=== PATIENT | male | born 1960 | race Caucasian/White ===

== ENCOUNTER 2018-09-04 03:36 | Inpatient (IN) | payer OTHER ==
[~2018-09-04] VITALS: Ht 177.8 cm; Wt 103.9 kg
--- NOTE | 2018-09-04 03:55 | ER Report ---
History and Physical Time Seen By MD: 03:33 Hx. of Stated Complaint: PATIENT IS FROM [facility]. TRAVELING THROUGH, WAS AT A HOTEL AND FELL OUT OF BED AROUND 0300; PATIENTS THOUGHT HE WAS DISORIENTED AND HAD LEFT SIDED WEEKNESS; PATIENT STATES THAT HE "FEELS FINE" EMS NOTICED THAT THE PATIENT DID HAVE LEFT SIDED WEEKNESS WELL AND LEFT ARM DRIFT WITH STROKE SCALE; NEG. TO FACIAL DROOP AND OR SLURRED SPEACH HPI/ROS CHIEF COMPLAINT: left sided weakness, confusion with fall out of bed HISTORY OF PRESENT ILLNESS: This is a 58 year old male. He is traveling through, moving from [place] to [place]. He fell out of bed and his noted confusion and left sided weakness and slurred speech. Called EMS who arrived. On EMS evaluation, they noted drift of the left arm, but did not appreciate any confusion or slurred speech. Otherwise negative. On arrival, the patient seems better, without deficits. The patient was able to tell me what happened this morning and he was feeling fine. He denies any headache, chest pain, shortness of breath. No weakness at this time and no dizziness. He has normal vision. No r ecent illnesses, and no fevers or chills. He takes a cholesterol and blood pressure medicine, but denies any heart problems otherwise. Family history of heart disease and stroke in father and brother. He is allergic to aspirin, anaphylaxis/hives. REVIEW OF SYSTEMS: Otherwise negative. No trouble with bowel or bladder. No musculoskeletal pain. Allergies: Coded Allergies: aspirin (Verified Allergy, Unknown, 09/04/18) Home Meds Reported Medications Simvastatin (SIMVASTATIN) 20 Mg Tablet, 20 MG PO HS, TAB 09/04/18 Losartan Potassium (LOSARTAN POTASSIUM) 25 Mg Tablet, 25 MG PO QDAY 09/04/18 Reviewed Nurses Notes: Yes Constitutional Vital Sign - Last 24 Hours 09/04/18 09/04/18 09/04/18 09/04/18 03:36 03:37 03:38 03:41 Temp 99.1 Pulse 62 59 62 Resp 44 18 11 B/P (MAP) 122/80 123/77 (92) Pulse Ox 93 96 90 O2 Delivery Room Air 09/04/18 09/04/18 09/04/18 09/04/18 03:46 03:51 03:56 04:00 Pulse ? 62 Resp 12 B/P (MAP) 133/80 (97) Pulse Ox 100 09/04/18 09/04/18 09/04/18 09/04/18 04:01 04:06 04:11 04:16 Pulse 66 62 63 71 Resp 19 37 29 Pulse Ox 93 96 09/04/18 09/04/18 09/04/18 09/04/18 04:21 04:26 04:30 04:31 Pulse 68 66 63 Resp 17 28 B/P (MAP) 140/86 (104) Pulse Ox 89 91 09/04/18 09/04/18 09/04/18 09/04/18 04:36 04:41 04:44 04:46 Pulse ? Resp 16 B/P (MAP) 134/76 (95) Pulse Ox 82 09/04/18 09/04/18 09/04/18 09/04/18 04:51 04:56 05:00 05:01 Pulse 72 65 65 Resp 22 B/P (MAP) 146/85 (105) Pulse Ox 89 99 09/04/18 09/04/18 05:06 05:11 Pulse 65 62 Resp 15 15 Pulse Ox 87 97 Physical Exam General Appearance: The patient is alert. No immediate need for airway protection. No acute distress. Non-toxic in appearance. Eyes: Pupils are equal, round. Reactive to light. No pallor, injection or icter us. Extraocular movements are intact. Normal visual brown by direct confrontation. No nystagmus. ENT: Mucous membranes are moist. Normal oral mucosa. Posterior oropharynx is normal. Normal tympanic membranes and canals. Neck: Supple and non tender. No lymphadenopathy. Respiratory: Lungs are clear to auscultation. There are no retractions or accessory muscle use. Cardiovascular: Regular rate and rhythm. No murmurs, gallops or rubs. Normal capillary refill. No edema. No carotid bruits. Gastrointestinal: Abdomen is soft and non tender. Nondistended. Normal active bowel sounds. Neurological: Alert and oriented x3. Cranial nerved exam with eye exam as noted above. Midline tongue, symmetric palate elevation, no facial weakness noted, no facial numbness to touch. Extremity exam shows equal strength in upper extremities, left leg seems a slight bit weaker. No ataxia on finger to nose or heel to fonseca. No dysphagia or aphasia noted. Skin: Warm and dry. No rashes. Musculoskeletal: Extremities are nontender. Full range of motion. No tenderness in palpation of the cervical, thoracic and lumbar spine. DIFFERENTIAL DIAGNOSIS: After history and physical exam, differential diagnosis was considered for patient with fall and deficits concerning for stroke. NIH stroke scale performed. The patient scored a 3. 2 points for loss of sharp sensation to pin-prick on the entire left side and 1 point for slight drift of the left foot. Telestroke was done with Dr. Day, neurology from the [facility] also evaluated. On her assessment, the left sided weakness was returning again as well as left facial droop. She scored a 5 on NIH stroke scale. Time of Last Known Normal would have been 2200 hours last night, 6+ hours. Medical Decision Making Data Points Result Diagram: 09/04/1832809/04/18328 Laboratory Hematology Test 09/04/18 03:29 White Blood Count 7.0 k/uL (4.5-11.0) Red Blood Count 5.22 M/uL (4.00-5.60) Hemoglobin 14.2 g/dL (14.0-18.0) Hematocrit 41.5 % (42.0-52.0) L Mean Corpuscular Volume 79.6 fL (80.0-96.0) L Mean Corpuscular Hemoglobin 27.2 pg (26.0-33.0) Mean Corpuscular Hemoglobin Concent 34.2 g/dL (32.0-36.0) Red Cell Distribution Width 13.9 % (11.5-14.5) Platelet Count 279 K/uL (150-450) Mean Platelet Volume 7.8 fL (7.2-11.1) Neutrophils (%) (Auto) 50.7 % (39.4-72.5) Lymphocytes (%) (Auto) 34.3 % (17.6-49.6) Monocytes (%) (Auto) 12.0 % (4.1-12.4) Eosinophils (%) (Auto) 2.2 % (0.4-6.7) Basophils (%) (Auto) 0.8 % (0.3-1.4) Nucleated RBC Relative Count (auto) 0.1 /100WBC Neutrophils # (Auto) 3.5 K/uL (2.0-7.4) Lymphocytes # (Auto) 2.4 K/uL (1.3-3.6) Monocytes # (Auto) 0.8 K/uL (0.3-1.0) Eosinophils # (Auto) 0.2 K/uL (0.0-0.5) Basophils # (Auto) 0.1 K/uL (0.0-0.1) Nucleated RBC Absolute Count (auto) 0.00 K/uL Chemistry Test 09/04/18 03:29 Sodium Level 137 mmol/L (137-145) Potassium Level 3.6 mmol/L (3.5-5.0) Chloride Level 97 mmol/L (98-107) Carbon Dioxide Level 28 mmol/L (22-30) Blood Urea Nitrogen 20 mg/dl (9-21) Creatinine 1.00 mg/dl (0.66-1.25) Glomerular Filtration Rate Calc > 60.0 Random Glucose 115 mg/dl (75-110) Calcium Level 9.5 mg/dl (8.4-10.2) Total Bilirubin 0.5 mg/dl (0.2-1.3) Aspartate Amino Transf (AST/SGOT) 30 U/L (0-35) Alanine Aminotransferase (ALT/SGPT) 36 U/L (0-56) Alkaline Phosphatase 42 U/L (0-126) Troponin I < 0.012 ng/ml Total Protein 7.7 g/dl (6.3-8.2) Albumin 4.5 g/dl (3.5-5.0) Coagulation Test 09/04/18 03:29 Prothrombin Time 12.7 seconds (12.0-14.4) Prothromb Time International Ratio 0.95 Activated Partial Thromboplast Time 28 seconds (23-35) EKG/Imaging EKG Interpretation 12 lead EKG: Rhythm: Normal sinus rhythm, rate 60 to [place]: normal QRS: normal ST segments: No elevation or depression noted. Nonspecific flattening Imaging Study: CT scan of the brain without intravenous contrast. Indication: Stroke symptoms Comparison study:None Technique: Multiple axial images were obtained through the brain without the use of intravenous contrast. One of the following dose optimization techniques was utilized in the performance of this exam: Automated exposure control; adjustment of the mA and/or kV according to the patient's size; or use of an iterative reconstruction technique. Specific details can be referenced in the facility's radiology CT exam operational policy. The examination demonstrates no evidence of acute intracranial hemorrhage. There is no evidence of extra-axial collection or hydrocephalus. There is no abnormal density identified within the brain parenchyma. Within the left basal ganglion, there is a 1.5 cm ovoid area of low density. This likely represents a perivascular space. There is no evidence of disruption of the peripheral meadows-white junction. The bony structures are unremarkable. IMPRESSION: No acute intracranial abnormality identified. Report Dictated By: Mark Saenz at 09/04/2018 4:01 AM AP CHEST 09/04/2018 3:55 AM. INDICATION: Weakness, fall. COMPARISON: None. FINDINGS: Lungs are well-expanded. There is no consolidation. No pleural effusion or pneumothorax. Azygos lobe. Heart size is normal. IMPRESSION: No acute abnormality. Report Dictated By: Pj Child MD at 09/04/2018 4:[address] angiogram head and neck INDICATION: Stroke alert. COMPARISON: Same-day head CT. TECHNIQUE: Axial CT images were obtained through the cerebral and neck vasculature. Multiplanar reformatted images were provided. 2-D and 3-D imaging was performed. Evaluation of internal carotid stenosis was performed per NASCET criteria. A total of 75 mL Isovue-370 IV contrast was administered. One of the following dose optimization techniques was utilized in the performance of th is exam: Automated exposure control; adjustment of the mA and/or kV according to the patient's size; or use of an iterative reconstruction technique. Specific details can be referenced in the facility's radiology CT exam operational policy. FINDINGS: The middle cerebral arteries, anterior cerebral arteries, posterior cerebral arteries as well as the bilateral vertebral arteries and carotid arteries are patent without focal stricture or aneurysm. Mild atherosclerosis at the right carotid bulb and at the bilateral internal carotid arteries with no significant stenosis. The visualized aortic arch and great vessels off the aortic arch are unremarkable. Dural venous sinuses are patent. No acute osseous abnormality. Moderate spondylosis at C5-6 with associated spinal canal and neural foraminal narrowing. Soft tissues are nonacute. 1 cm slightly hyperattenuating nodule in the isthmus of the thyroid. Lung apices are clear. Azygos lobe. Moderate coronary artery calcifications. IMPRESSION: 1. Mild atherosclerosis with no acute abnormality of the neck and cerebral vasculature. 2. No apparent acute intracranial abnormality. 3. Moderate coronary artery calcifications. 4. [address] Child discussed this case with PINEDA MOSER on 09/04/2018 5:14 AM. Report Dictated By: Pj Child MD at 09/04/2018 5:02 AM Study: MRI brain without the use of intravenous contrast Indication: Stroke symptoms Comparison study: None Technique: Multiplanar MRI sequences were obtained through the brain without the use of intravenous gadolinium contrast. The examination demonstrates no evidence of acute intracranial hemorrhage. There is no evidence of extra-axial collection or hydrocephalus. A diffusion-weighted sequence was performed and demonstrates the presence of diffusion restriction involving the perisylvian right frontal lobe. There is minimal increased T2-weighted signal on the FLAIR sequence corresponding to the area of infarction. There is no evidence of hemorrhage associated with the area of infarction. There is an area of CSF signal intensity within the left basal ganglion. This is most consistent with a enlarged perivascular space. The orbits are grossly unremarkable. There is no significant abnormality of the paranasal sinuses present. IMPRESSION: Diffusion restriction involving the perisylvian right frontal lobe. There is no hemorrhage associated with the area of infarction. Dr. Moser was made aware of these findings at 5:56 AM. Report Dictated By: Mark Saenz at 09/04/2018 5:54 AM ED Course/Re-evaluation Clinical Indication for ER IV: Hydration, IV Access ED Course CT scan was done, negative as noted. EKG and chest x-ray obtained. Labs also o btained showing a white count of 7.0, H&H of 14.2 and 41.5, and platelets of 279. Metabolic panel has normal electrolytes other than a slightly low chloride at 97, BUN to creatinine ratio was slightly elevated at 20 and 1.0. Normal liver function testing. Glucose is 1:15. Troponin is undetectable. Coagulation studies are normal. After tele-stroke was done, it was felt that the patient has signs that would indicate acute stroke, however he is outside of any window for thrombolytics, risks to benefit ratio would be too high of a risk at this time. Recommendation for further imaging with CT angiogram and then MRI. Other interventions will be determined on the basis of these studies. The patient is allergic to aspirin, so we will pursue Plavix once the CT angiograms are done and if they are negative. CT angiograms are negative for any large vessel occlusions. Plavix 75 mg oral dose was added. MRI brain noncontrast being done. MRI shows embolic stroke right side consistent with left sided symptoms. Discussed with patient and his . Dr. Nieves came to the ER to see him and has accepted him for admission to the hospital. Decision to Disposition Date: Sep 04, 2018 Decision to Disposition Time: 06:16 Critical Care Time I spent a total of 90 minutes of critical care time in obtaining history, performing a physical exam, bedside monitoring of interventions, collecting and interpreting tests and discussion with consultants but not including time spent performing procedures. Depart Departure Latest Vital Signs Vital Signs Date Time Temp Pulse Resp B/P (MAP) Pulse Ox O2 Delivery O2 Flow Rate FiO2 09/04/18 05:11 62 15 97 09/04/18 05:00 146/85 (105) 09/04/18 03:37 99.1 Room Air Impression: Primary Impression: CVA (cerebrovascular accident) Condition: Condition Unchanged Disposition: Admitted from ER Problem Qualifiers Primary Impression: CVA (cerebrovascular accident) CVA mechanism: embolism Precerebral and cerebral artery: middle cerebral artery Laterality of affected vessel: right Qualified Codes: I63.411 - Cerebral infarction due to embolism of right middle cerebral artery PINEDA MOSER MD Sep 04, 2018 03:54
[2018-09-04 04:02] LABS: PLATELET COUNT, AUTOMATED 279 K/uL (150-450)
[2018-09-04 04:10] LABS: INR 0.95
--- NOTE | 2018-09-04 04:15 | RADIOLOGY IMAGING REPORT ---
[place] [facility] [place] Toro Rowan : 1960 MR: [id number] V: [id number] EXAM DATE: ORDERING PHYSICIAN: PINEDA MOLINA TECHNOLOGIST: Location: [facility] - [place] Patient: Toro Rowan : 1960 Visit/Account:[id number] Date of Sevice: 09/04/2018 Study: CT scan of the brain without intravenous contrast. Indication: Stroke symptoms Comparison study:None Technique: Multiple axial images were obtained through the brain without the use of intravenous contr ast. One of the following dose optimization techniques was utilized in the performance of this exam: Autom ated exposure control; adjustment of the mA and/or kV according to the patient's size; or use of an i terative reconstruction technique. Specific details can be referenced in the facility's radiology C T exam operational policy. The examination demonstrates no evidence of acute intracranial hemorrhage. There is no evidence of ex tra-axial collection or hydrocephalus. There is no abnormal density identified within the brain parenchyma. Within the left basal ganglion, there is a 1.5 cm ovoid area of low density. This likely represents a perivascular space. There is no evidence of disruption of the peripheral meadows-white junction. The bony structures are unremarkable. IMPRESSION: No acute intracranial abnormality identified. Report Dictated By: Mark Saenz at 09/04/2018 4:01 AM Report E-Signed By: Mark Saenz at 09/04/2018 4:07 AM WSN:[id number]
[2018-09-04] MEDS ORDERED: IOPAMIDOL 76% 100 ML INFUS BTL 100 ML ONE (04:22)
[2018-09-04] MEDS ORDERED: NS(*) 0.9% 50 ML BAG 50 ML ONE (04:22)
--- NOTE | 2018-09-04 04:42 | RADIOLOGY IMAGING REPORT ---
FACILITY: [facility] PATIENT NAME: Toro Rowan : 1960 MR: [id number] V: [id number] EXAM DATE: ORDERING PHYSICIAN: PINEDA MOLINA TECHNOLOGIST: Location: [facility] - [place] Patient: Toro Rowan : 1960 Visit/Account:[id number] Date of Sevice: 09/04/2018 AP CHEST 09/04/2018 3:55 AM. INDICATION: Weakness, fall. COMPARISON: None. FINDINGS: Lungs are well-expanded. There is no consolidation. No pleural effusion or pneumothorax. Azygos lobe . Heart size is normal. IMPRESSION: No acute abnormality. Report Dictated By: Pj Child MD at 09/04/2018 4:33 AM Report E-Signed By: Pj Child MD at 09/04/2018 4:34 AM WSN:[id number]
--- NOTE | 2018-09-04 05:22 | RADIOLOGY IMAGING REPORT ---
FACILITY: [facility] PATIENT NAME: Toro Rowan : 1960 MR: [id number] V: [id number] EXAM DATE: ORDERING PHYSICIAN: PINEDA MOLINA TECHNOLOGIST: Location: [facility] - [place] Patient: Toro Rowan : 1960 Visit/Account:[id number] Date of Sevice: 09/04/2018 CT angiogram head and neck INDICATION: Stroke alert. COMPARISON: Same-day head CT. TECHNIQUE: Axial CT images were obtained through the cerebral and neck vasculature. Multiplanar ref ormatted images were provided. 2-D and 3-D imaging was performed. Evaluation of internal carotid st enosis was performed per NASCET criteria. A total of 75 mL Isovue-370 IV contrast was administered. One of the following dose optimization techniques was utilized in the performance of this exam: Aut omated exposure control; adjustment of the mA and/or kV according to the patient's size; or use of an iterative reconstruction technique. Specific details can be referenced in the facility's radiology CT exam operational policy. FINDINGS: The middle cerebral arteries, anterior cerebral arteries, posterior cerebral arteries as well as the bilateral vertebral arteries and carotid arteries are patent without focal stricture or aneurysm. Mi ld atherosclerosis at the right carotid bulb and at the bilateral internal carotid arteries with no s ignificant stenosis. The visualized aortic arch and great vessels off the aortic arch are unremarkab le. Dural venous sinuses are patent. No acute osseous abnormality. Moderate spondylosis at C5-6 with associated spinal canal and neural f oraminal narrowing. Soft tissues are nonacute. 1 cm slightly hyperattenuating nodule in the isthmus of the thyroid. Lung apices are clear. Azygos lobe. Moderate coronary artery calcifications. IMPRESSION: 1. Mild atherosclerosis with no acute abnormality of the neck and cerebral vasculature. 2. No apparent acute intracranial abnormality. 3. Moderate coronary artery calcifications. 4. [address] Child discussed this case with PINEDA MOLINA on 09/04/2018 5:14 AM. MANAGING INCIDENTAL THYROID NODULES DETECTED ON CT OR MRI *These do not apply to all patients, such as those with clinical risk factors for thyroid cancer or p ediatric patients. Suspicious CT or MRI findings (abnormal LNs or invasion of adjacent tissues) Evaluate with thyroid US NO Suspicious CT or MRI findings Limited life expectancy or comorbidities * No further evaluation General population < 35 years old * < 1 cm ? No further evaluation * >/= 1 cm ? Evaluate with thyroid US > 35 years old * < 1.5 cm ? No further evaluation * >/= 1.5 cm ? Evaluate with thyroid US Bessy Baker et al. Managing Incidental Thyroid Nodules Detected on Imaging: White Paper of the Layla MCCORMICK Incidental Thyroid Findings Committee. Journal of the [employer] 2017. uchnitn Report Dictated By: Pj Child MD at 09/04/2018 5:02 AM Report E-Signed By: Pj Child MD at 09/04/2018 5:14 AM WSN:[id number]
--- NOTE | 2018-09-04 05:22 | RADIOLOGY IMAGING REPORT ---
[place] [facility] [place]: Toro Rowan : 1960 MR: [id number] V: [id number] EXAM DATE: ORDERING PHYSICIAN: PINEDA MOLINA TECHNOLOGIST: Location: [facility] [place] Patient: Toro Roawn : 1960 Visit/Account:[id number] Date of Sevice: 09/04/2018 CT angiogram head and neck INDICATION: Stroke alert. COMPARISON: Same-day head CT. TECHNIQUE: Axial CT images were obtained through the cerebral and neck vasculature. Multiplanar ref ormatted images were provided. 2-D and 3-D imaging was performed. Evaluation of internal carotid st enosis was performed per NASCET criteria. A total of 75 mL Isovue-370 IV contrast was administered. One of the following dose optimization techniques was utilized in the performance of this exam: Aut omated exposure control; adjustment of the mA and/or kV according to the patient's size; or use of an iterative reconstruction technique. Specific details can be referenced in the facility's radiology CT exam operational policy. FINDINGS: The middle cerebral arteries, anterior cerebral arteries, posterior cerebral arteries as well as the bilateral vertebral arteries and carotid arteries are patent without focal stricture or aneurysm. Mi ld atherosclerosis at the right carotid bulb and at the bilateral internal carotid arteries with no s ignificant stenosis. The visualized aortic arch and great vessels off the aortic arch are unremarkab le. Dural venous sinuses are patent. No acute osseous abnormality. Moderate spondylosis at C5-6 with associated spinal canal and neural f oraminal narrowing. Soft tissues are nonacute. 1 cm slightly hyperattenuating nodule in the isthmus of the thyroid. Lung apices are clear. Azygos lobe. Moderate coronary artery calcifications. IMPRESSION: 1. Mild atherosclerosis with no acute abnormality of the neck and cerebral vasculature. 2. No apparent acute intracranial abnormality. 3. Moderate coronary artery calcifications. 4. [address] Child discussed this case with PINEDA MOLINA on 09/04/2018 5:14 AM. MANAGING INCIDENTAL THYROID NODULES DETECTED ON CT OR MRI *These do not apply to all patients, such as those with clinical risk factors for thyroid cancer or p ediatric patients. Suspicious CT or MRI findings (abnormal LNs or invasion of adjacent tissues) Evaluate with thyroid US NO Suspicious CT or MRI findings Limited life expectancy or comorbidities * No further evaluation General population < 35 years old * < 1 cm ? No further evaluation * >/= 1 cm ? Evaluate with thyroid US > 35 years old * < 1.5 cm ? No further evaluation * >/= 1.5 cm ? Evaluate with thyroid US Bessy Baker et al. Managing Incidental Thyroid Nodules Detected on Imaging: White Paper of the Layla MCCORMICK Incidental Thyroid Findings Committee. Journal of the [employer] 2017. uchnitn Report Dictated By: Pj Child MD at 09/04/2018 5:02 AM Report E-Signed By: Pj Child MD at 09/04/2018 5:14 AM WSN:[id number]
[2018-09-04] MEDS ORDERED: CLOPIDOGREL BISULFATE 75MG TAB PO ONE (05:35)
[2018-09-04] MEDS ORDERED: LOSA25TA57 PO (05:49)
[2018-09-04] MEDS ORDERED: SIMV-49 PO (05:49)
--- NOTE | 2018-09-04 05:55 | EKG ---
FACILITY: [facility] PATIENT NAME: STEPHANIE CLINE : [id number] MR: [id number] V: [id number] EXAM DATE: ORDERING PHYSICIAN: PINEDA MOLINA TECHNOLOGIST: LIZZ Test Reason : WEAKNESS Blood Pressure : / mmHG Vent. Rate : 062 BPM Atrial Rate : 062 BPM P-R Int : 198 ms QRS Dur : 090 ms QT Int : 426 ms P-R-T Axes : 039 005 032 degrees QTc Int : 432 ms Normal sinus rhythm Normal ECG No previous ECGs available Confirmed by Simba Winters ([id number]) on 09/04/2018 7:14:59 AM Referred By: Confirmed By:Simba Archer
--- NOTE | 2018-09-04 06:06 | RADIOLOGY IMAGING REPORT ---
[place] [facility] [place] NAME: Toro Rowan : 1960 MR: [id number] V: [id number] EXAM DATE: ORDERING PHYSICIAN: PINEDA MOSER TECHNOLOGIST: Location[place] [facility] [place] Patient: Toro Rowan : 1960 Visit/Account:[id number] Date of Sevice: 09/04/2018 Study: MRI brain without the use of intravenous contrast Indication: Stroke symptoms Comparison study: None Technique: Multiplanar MRI sequences were obtained through the brain without the use of intravenous g adolinium contrast. The examination demonstrates no evidence of acute intracranial hemorrhage. There is no evidence of ex tra-axial collection or hydrocephalus. A diffusion-weighted sequence was performed and demonstrates the presence of diffusion restriction in volving the perisylvian right frontal lobe. There is minimal increased T2-weighted signal on the FLAIR sequence corresponding to the area of infa rction. There is no evidence of hemorrhage associated with the area of infarction. There is an area of CSF signal intensity within the left basal ganglion. This is most consistent with a enlarged perivascular space. The orbits are grossly unremarkable. There is no significant abnormality of the paranasal sinuses present. IMPRESSION: Diffusion restriction involving the perisylvian right frontal lobe. There is no hemorrhag e associated with the area of infarction. Dr. Moser was made aware of these findings at 5:56 AM. Report Dictated By: Mark Saenz at 09/04/2018 5:54 AM Report E-Signed By: Mark Saenz at 09/04/2018 5:58 AM WSN:[id number]
[2018-09-04] MEDS ORDERED: FLUSH 10 ML SYR IVP PRN (07:40)
[2018-09-04] MEDS ORDERED: SIMVASTATIN 20 MG TAB PO ONE (07:40)
[2018-09-04 08:12] VITALS: BP 139/84
--- NOTE | 2018-09-04 08:25 | History & Physical ---
History of Present Illness Chief Complaint L sided numbness, weakness History of Present Illness 58M presented with L sided weakness and numbness. PMHx significant for HTN, HLD. EMS called by patients after he fell out of bed around 4am and had difficulty standing up. Last known well 10pm 07.23 when they went to sleep in hotel. They have been traveling from [facility] to [facility] in [place]. NIH 5 in ER with Tele-stroke neurologist. At my time of evaluation NIH 4. MRI does show area of ischemia, no evidence of bleeding. Due to ASA allergy patient was started on clopidogrel. History Home Meds Reported Medications Simvastatin (SIMVASTATIN) 20 Mg Tablet, 20 MG PO HS, TAB 09/04/18 Losartan Potassium (LOSARTAN POTASSIUM) 25 Mg Tablet, 25 MG PO QDAY 09/04/18 Allergies: Coded Allergies: aspirin (Verified Allergy, Unknown, 09/04/18) Patient History: FH: CAD (coronary artery disease) Hx Smoking: No Review of Systems All Systems Reviewed/Normal: Yes, Except as Noted Neurological: Weakness, Other (L sided numbness) Exam Vital Signs Vital Signs Date Time Temp Pulse Resp B/P (MAP) Pulse Ox O2 Delivery O2 Flow Rate FiO2 09/04/18 07:30 73 18 121/75 (90) 09/04/18 05:11 97 09/04/18 03:37 99.1 Room Air General Appearance: Alert, Awake, No Acute Distress, Afebrile Neuro: Other (L sided paresthesia, L arm weakness 3/5, L facial droop/paresthes ia, LLE 5/5 strength, CN 2-12 otherwise intact) Cardiovascular: Normal Rhythm & Peripheral Pulses Respiratory: No Respiratory Distress GI: Abd Soft and Non-Tender Extremities: Soft and Non Tender, Warm, Pulses, Perfused Integumentary: Skin Intact without Lesion / Mass Medical Decision Making Data Points Result Diagram: 09/04/1832809/04/18328 EKG / Imaging EKG Interpretation NSR Monitor Interpretation: Normal Sinus Rhythm Assessment and Plan Problems: (1) CVA (cerebrovascular accident) Status: Acute Assessment & Plan: NIH 5 in ER, NIH 4 on admission, MRI - Diffusion restriction involving the perisylvian right frontal lobe. CTA with normal vacular imaging, no evidence of hemorrhage. Patient presented outside TPA window, begin Plavix due to patient allergy to ASA. Resume simvastatin. PT/OT/ST consulted. Monitor on telemetry. Echo with bubble study pending. (2) HTN (hypertension) Status: Chronic Assessment & Plan: Will hold losartan, allow permissive HTN. Only intervene if BP increases > 220 systolic over next 24-48 hours. Venous Thromboembolism Antithrombotics Is Pt On Any Antithrombotics?: Yes CVA Documentation Date of Onset of Symptoms: Sep 04, 2018 Symptom Onset Unknown: Yes Signs and Symptoms of Stroke: Dyspraxia of Arm NIH Stroke Scale: 4 Date of NIH Scale: Sep 04, 2018 Time of NIH Scale: 06:15 Baseline Date: Sep 03, 2018 Baseline Time: 22:00 Heparin Therapy Protocol: N/A Exam Sepsis Risk: No Definite Risk Problem Qualifiers (1) CVA (cerebrovascular accident): CVA mechanism: embolism Precerebral and cerebral artery: middle cerebral artery Laterality of affected vessel: right Qualified Codes: I63.411 - Cerebral infarction due to embolism of right middle cerebral artery HELDER LÓPEZ DO Sep 04, 2018 08:25
[2018-09-04] MEDS: ENOXAPARIN 40 MG/0.4ML SYR SC SCH (10:17)
--- NOTE | 2018-09-04 10:26 | Medical Nutrition Therapy ---
Nutrition Anthropometrics Height (Inches): 70.00 Height (Calculated Centimeters: 177.633594 Weight (Pounds): 229 Weight (Calculated Kilograms): 103.901 BMI: 32.9 Hx Weight Loss: Yes (Intentional Wt loss (Lost ~5lbs in last 6 months)) Rancho Nutrition Score: Rancho Nutrition Risk Score: Dietary Referral Nutrition Risk Factors: Nutrition Risk Comment: Physical Findings Physical Appearance: Obese BMI 30-39 Skin Appearance Skin Appearance: Edema Edema Location Modifier: Edema Location: Type of Edema: Degree of Edema: Gastrointestinal Symptoms GI Symtoms: Tube Present: Bowel Sounds: Recent Bowel Pattern: Stool Characteristics: Nutrition/Food History Good Breakfast: Typically eats 3 meals per day Nutritional Diagnosis Nutritional Risk Acuity 3: Fair Appetite, Eat/Chew Problem Nutritional Risk Acuity 4: Good Appetite Past Medical History: HTN, HLD Nutritional Acuity: 3-Mild Adjusted Energy Requirement Re: 2147 (Currie Rumsey Equation) Protein Requirement: 104 Fluid Requirement: 2147 (1mL/kcal) Diet Type: NPO (Nothing by Mouth) Nutrition Monitoring & Eval RD Patient Assessment Time: [address] Assessment Type: RD Assessment Patient Nutrition Acuity: 3-Mild Follow Up Date: Sep 09, 2018 Nutritional Comment: 09/04/18-Spoke with pt and his this am. Pt admit for CVA. Significant PMH includes HTN, HLD. Pt appears well nourished, reports eating 3 meals per day. Usual body weight is ~230 lbs. Pt reports intentional wt loss of ~5lbs over last 6 months. Pt reported some facial numbing. Pt asked when pt could water or food. Spoke with RN and plan is to complete a [employer]SEM[employer] evaluation before diet advancement. Communicated plan to and pt. Also provided handout on stroke nutrition therapy focusing on low sodium/cholesterol. Will continue to monitor diet advancement, po intake, and any questions on stroke nutrition education.AMANDA SINGH Sep 04, 2018 10:26
[2018-09-04 12:03] VITALS: BP 120/88
--- NOTE | 2018-09-04 12:55 | NUR ---
Physical Therapy Impression PT eval complete. Noted grossly symmetrical strength 5/5 for B LE dorsiflexion, knee flexion/extension, and hip flexion. Noted L UE and LE ataxia with movement. Decreased sensation reported in L UE and LE with light touch. Pt able to perform bed mobility and sit<>stand stransfers with SBA/CGA. Attempted to ambulate with luis-walker in R UE, Pt unable to safely use. This PT provided CGA, then hand-hold assist, then Min A for balance as Pt ambulated and became more fatigued. Noted moderate L neglect. Strongly recommend acute rehab. Physical Therapy Goals 1. Independent bed mobility. 2. Independent transfers. 3. Mod I ambulation x 150' with least restrictive device. 4. Ascend/descend 4 stairs SBA. Patient's Goals
[2018-09-04 14:09] VITALS: BP 115/81
--- NOTE | 2018-09-04 16:33 | SPEECH INITIAL EVALUATION ---
INITIAL SPEECH THERAPY EVALUATION REPORT Cognitive Linguistic and Bedside Swallow Assessment Patient Name: Toro Rowan Date of Evaluation: 09/04/18 Patient : 1960 Clinician: Kaia Higgins M.S., [facility]-RESIDENTIAL TECH Treatment Dx: BACKGROUND The patient is a 58-year-old male admitted to [facility] on 09/04/18 with L sided weakness and numbness. He fell out of bed around 4am, and had difficulty standing back up. He and his spouse were staying in a hotel while traveling from [facility] to their new home in [place]. Brain MRI revealed diffusion restriction involving the perisylvian right frontal lobe. The pt was referred for an ST evaluation to analyze cognitive linguistic status and swallow function s/p acute CVA with associated L inattention. Primary Medical Diagnosis: R frontal CVA Past Medical Hx: HTN Pain Scale (0-10): 0 LOC / Participation: very pleasant, participatory, somewhat tearful Prior Level of Function: independent with all functions, relocating for new job in [place] DYSPHAGIA ASSESSMENT Sialorrhea: Not directly observed; however, RN reports some drooling from L corner of oral cavity in AM Xerostomia: No Supplemental Oxygen Use: No COPD Dx: No Pain with Swallow: None Pt was seen at the bedside for clinical swallowing assessment. RN present throughout encounter. Oral mechanism examination was notable for subtle, L facial weakness/droop at rest in addition to mild difficulty with L lingual deviation. Pt endorsed decreased L sided sensation to tactile stimulation, extending from chin to forehead and ceasing at scalp. Administered PO trials of thin liquids via straw (single, consecutive), mechanically altered solids, and regular solids. No overt indicators of aspiration or oropharyngeal dysphagia observed. Pt was initially impulsive with administration of PO trials, but modified his rate of intake with single verbal cue. He was able to safely and efficiently clear oral cavity without evidence of oral residue. However, pt was encouraged to complete periodic lingual sweep (particularly on L) to avoid oral stasis in the setting of decreased L sided sensation/attention, and to minimize risk for post-swallow aspiration. At this time, pt is considered safe for continuance of a regular diet, thin liquids with adherence to general precautions as outlined below. Reviewed results, recommendations, and general dysphagia education at the bedside with RN present. Further skilled interventions do not appear indicated for dysphagia. However, the pt may continue to experience difficulty with self-feeding as a result of L inattention and deficits in executive functioning skills (reduced self-monitoring, impulsiveness). Encouraged staff to support as indicated. NIMESH: Level 6 Aspiration Risk: low RECOMMENDATIONS 1. Diet: regular solids, thin liquids, 2. Medications: whole, one at a time, with thin liquids 3. Compensatory Techniques: ensure upright positioning during PO intake, lingual or finger sweep as needed to clear residue, regular oral hygiene 4. Supervision: not warranted; provide intermittent reminders to reduce rate of intake and monitor potentially impulsive behaviors. COGNITIVE LINGUISTIC ASSESSMENT Cognitive linguistic assessment also completed at the bedside, illustrating mild deficits with primary area of impairment noted in attention and executive function skills. Etiology is consistent with R frontal CVA. Cognitive linguistic assessment procedures focused on informal analysis paired with the Nile Cognitive Assessment (MOCA), version 7.3. Pt achieved a score of 25/30 (>26/30=WNL). Errors were noted during tasks requiring focused attention and executive function skills. The pt struggled with cognitive organization for completion of prospective thinking/planning tasks. He further demonstrated difficulty with self-monitoring, including rapid rate of intake with self-administration of PO trials during bedside swallow evaluation. The pt was somewhat hyperverbose throughout encounter, which may also be attributed to tearfulness associated with CVA and feeling reportedly anxious about potential deficits. Though visual neglect was not observed, reduced L sided proprioception was noted while attempting to locate objects on L side of body in space. Relative areas of strength were noted in memory (immediate, working), language, mental abstraction, and orientation. Pt also exhibits emerging insight into deficits. The pt appears to be functioning moderately below baseline. Family not present to verify prior level of function; however, pt intends to return to work with goal of relocation for new employment in [place]. Recommend acute rehab placement at discharge to support return to high PLOF following acute physical and cognitive changes. Further ST interventions are warranted in an acute care setting to assist with functional cognitive linguistic skills to support integration within hospital environment and to optimize transition to next level of care. RECOMMENDATIONS 1. ST 4x/wk 2. D/C to acute rehab PROGNOSIS: Good, high PLOF, high motivation, good insight PLAN OF CARE Short Term Goals 1. The patient will identify appropriate goals for daily activity in hospital environment, and generate a logical plan for achievement of goal when provided with min assist for use of organization/planning strategies. Thank you for this referral. Please call [phone] to contact with any questions or concerns. Kaia Higgins M.S., CCC-RESIDENTIAL TECH [*] MTDD
--- NOTE | 2018-09-04 16:34 | NUR ---
ST IMPRESSION Cognitive linguistic and bedside swallow assessments complete. See full report for detailed information. Mild cognitive deficits observed, particularly in the areas of attention and executive functions (consistent with R frontal CVA). From a swallow standpoint, the pt is considered safe for continuance of a regular diet, thin liquids with adherence to general precautions. Pt may continue to experience difficulty with self-feeding as a result of L inattention and deficits in executive functioning skills (reduced self-monitoring, impulsiveness). Encourage staff to support as indicated. Recommend D/C to acute rehab.
[2018-09-04 16:37] VITALS: BP 135/82
[2018-09-04 18:40] VITALS: BP 156/82
[2018-09-04] MEDS: SIMVASTATIN 20 MG TAB PO SCH (21:22)
[2018-09-04 23:23] VITALS: BP 129/82
[2018-09-05 03:00] VITALS: BP 124/79
[2018-09-05 05:35] LABS: LDL CHOLESTEROL 42 mg/dl
[2018-09-05 07:19] VITALS: BP 136/89
--- NOTE | 2018-09-05 09:09 | Hospitalist Progress Note ---
Subjective Progress Notes Subjective He notes some persistent left arm/hand weakness. He is alert and oriented x3. He follows all commands, but does require second command occasionally. Physical Exam Vital Signs Date Time Temp Pulse Resp B/P (MAP) Pulse Ox O2 Delivery O2 Flow Rate FiO2 09/05/18 07:36 94 Room Air 09/05/18 07:19 98.0 65 136/89 (105) 09/05/18 03:00 16 1.0 Intake and Output 09/05/18 07:03 Intake Total 937 ml Balance 937 ml Intake Oral 937 ml # Voids 5 # Bowel Movements 1 General Appearance: Alert, Awake Neuro: Other (Very mild left upper weakness in all groups/even less noticeable in LLE. Left pronator drift is present.) Neck: No Masses Cardiovascular: Regular Rate and Rhythm Respiratory: Clear to Auscultation GI: Soft and Non-Tender Extremities: Warm, Perfused Psych: Alert & Oriented X3 Result Diagram: 09/04/18 0329 09/05/18 0510 Item Value Date Time Cholesterol/HDL Ratio 2.3 09/05/18 0510 Cholesterol Ratio (LDL/HDL) 0.77 09/05/18 0510 Percent HDL Cholesterol 42.0 % 09/05/18 0510 HDL Cholesterol 54 mg/dl 09/05/18 0510 VLDL Cholesterol 30 mg/dl 09/05/18 0510 LDL Cholesterol 42 mg/dl 09/05/18 0510 Cholesterol Level 126 mg/dl 09/05/18 0510 Triglycerides Level 149 mg/dl 09/05/18 0510 Albumin 3.9 g/dl 09/05/18 0510 Total Protein 6.4 g/dl 09/05/18 0510 Alkaline Phosphatase 36 U/L 09/05/18 0510 Alanine Aminotransferase (ALT/SGPT) 37 U/L 09/05/18 0510 Aspartate Amino Transf (AST/SGOT) 23 U/L 09/05/18 0510 Total Bilirubin 1.0 mg/dl 09/05/18 0510 Calcium Level 9.3 mg/dl 09/05/18 0510 Monitor Interpretation: Normal Sinus Rhythm Assessment and Plan Problems: (1) CVA (cerebrovascular accident) Status: Acute Assessment & Plan: MRI - Diffusion restriction involving the perisylvian right frontal lobe. CTA with normal vascular imaging, no evidence of hemorrhage. Patient presented outside TPA window. He has been started on Plavix due to patient allergy to ASA. We have resumed simvastatin. PT/OT/ST seeing him and have recommended acute rehab. There will be some logistical problems as he is in process of moving from [place] to [place]. Continue to monitor on telemetry, but no abnormalities as of yet. Echocardiogram with bubble study still pending. (2) HTN (hypertension) Status: Chronic Assessment & Plan: Will continue to hold losartan, allow permissive HTN. He has not had any significant elevation of his BP to this point (max SBP 156). Exam Sepsis Risk: No Definite Risk Problem Qualifiers (1) CVA (cerebrovascular accident): CVA mechanism: embolism Precerebral and cerebral artery: middle cerebral artery Laterality of affected vessel: right Qualified Codes: I63.411 - Cerebral infarction due to embolism of right middle cerebral artery JOHN SWAN MD Sep 05, 2018 09:09
[2018-09-05] MEDS: CLOPIDOGREL BISULFATE 75MG TAB PO SCH (09:40)
[2018-09-05] MEDS: ENOXAPARIN 40 MG/0.4ML SYR SC SCH (09:41)
--- NOTE | 2018-09-05 10:53 | NUR ---
Physical Therapy Impression Noted improvement in Pt's L UE and LE ataxia and also improved attention to L side. Pt continues to demonstrate functional mobility and balance impairments consistent with R-sided CVA and would benefit from acute rehab in order to increase safety and independence in order to return to prior level of function. Physical Therapy Goals 1. Independent bed mobility. 2. Independent transfers. 3. Mod I ambulation x 150' with least restrictive device. 4. Ascend/descend 4 stairs SBA. Patient's Goals
--- NOTE | 2018-09-05 11:18 | NUR ---
ST IMPRESSION Pt continues with deficits in executive function skills and attention. Cognitive impairments are consistent with R frontal CVA. Pt exhibited mildly improved self-monitoring skills vs initial encounter, but continues to require redirection to minimize hyperverbose tendencies and to support attention to tasks or auditory instructions. Short-term memory and insight remain areas of strength, despite difficulty with self-regulating behaviors. Pt indep recalled this DIRECTOR BUSINESS MANAGEMENT, immediately verbalized acknowledgement of exec fxn deficits, and recalled 5-item list from [facility] administration on previous day. Pt appropriately identified areas of physical and cognitive impairment, personal strengths, and goals for rehabilitative improvement with mod to min cues. Pt is highly motivated, remains a great candidate for acute rehab at discharge. Recommend continued ST services in an acute rehab setting to address higher level, executive functioning deficits and to support return to PLOF.
[2018-09-05 11:26] VITALS: BP 125/77
--- NOTE | 2018-09-05 12:53 | NUR ---
Occupational Therapy Impression CGA/Min A ambulation x200ft with no AD. Decreased balance and left side neglect persists requiring occasional cues and assist from OT. SBA toileting. Ther act to include left and and UE (see note). Pt demonstrating improved strength and AROM in left hand this date. Strongly recommend acute rehab. Occupational Therapy Goals 1) Pt will be SBA UB/LB dressing. 2) Pt will be educated on visual stratagies for left side neglect. 3) Pt will be educated on left hand AROM/AAROM. Patient's Goal
[2018-09-05 15:39] VITALS: BP 124/76
--- NOTE | 2018-09-05 15:45 | NUR ---
Physical Therapy Impression Pt participated in Archer Balance Scale scoring 50/56 indicating low fall risk. Pt safe to be independent in hospital room. Physical Therapy Goals 1. Independent bed mobility. 2. Independent transfers. 3. Mod I ambulation x 150' with least restrictive device. 4. Ascend/descend 4 stairs SBA. Patient's Goals
[2018-09-05 18:54] VITALS: BP 107/74
[2018-09-05] MEDS: SIMVASTATIN 20 MG TAB PO SCH (21:06)
[2018-09-05 23:49] VITALS: BP 129/77
[2018-09-06 03:44] VITALS: BP 97/57
[2018-09-06 06:52] VITALS: BP 124/83
[2018-09-06] MEDS: ENOXAPARIN 40 MG/0.4ML SYR SC SCH (09:39)
[2018-09-06] MEDS: CLOPIDOGREL BISULFATE 75MG TAB PO SCH (09:39)
--- NOTE | 2018-09-06 10:02 | Hospitalist Progress Note ---
Subjective Progress Notes Subjective The patient denies new complaints. He notes he is getting better. Physical Exam Vital Signs Date Time Temp Pulse Resp B/P (MAP) Pulse Ox O2 Delivery O2 Flow Rate FiO2 09/06/18 06:52 98.8 67 124/83 (97) 89 Room Air 09/06/18 03:44 16 09/05/18 03:00 1.0 Intake and Output 09/06/18 07:03 Intake Total 1510 ml Balance 1510 ml Intake Oral 1510 ml # Voids 3 # Bowel Movements 1 General Appearance: Alert, Awake, No Acute Distress Neuro: Other (L biceps and triceps 4+/5 compared with R biceps triceps 5/5 but patient is right handed. Speech was normal today. ) Eyes: PERRLA Cardiovascular: Regular Rate and Rhythm Respiratory: Clear to Auscultation GI: Soft and Non-Tender Extremities: Warm, Perfused Psych: Alert & Oriented X3, Appropriate Mood & Affect Result Diagram: 09/04/18 0329 09/05/18 0510 Monitor Interpretation: Normal Sinus Rhythm Assessment and Plan Problems: (1) CVA (cerebrovascular accident) Status: Acute Assessment & Plan: MRI - Diffusion restriction involving the perisylvian right frontal lobe. CTA with normal vascular imaging, no evidence of hemorrhage. Patient presented outside TPA window. He has been started on Plavix due to patient allergy to ASA. We have resumed simvastatin. Lipid panel was normal (on statin). PT/OT/ST seeing him and recommended acute rehab. ARU in [place] was consulted and denied patient as they felt he was doing well and could do OP therapy rather than inpatient. Discharge will present some logistical problems as he is in process of moving from [place] to [place]. Telemetry has shown no abnormalities so will DC so the patient can move around more easily. Echo cardiogram with bubble study was unremarkable. (2) HTN (hypertension) Status: Chronic Assessment & Plan: Will continue to hold losartan, allow permissive HTN. He has not had any significant elevation of his BP to this point (max SBP 156). Time Spent on Plan of Care: < 30 min Exam Sepsis Risk: No Definite Risk Problem Qualifiers (1) CVA (cerebrovascular accident): CVA mechanism: embolism Precerebral and cerebral artery: middle cerebral artery Laterality of affected vessel: right Qualified Codes: I63.411 - Cerebral infarction due to embolism of right middle cerebral artery KATHERINE SWAN MD Sep 06, 2018 10:02
--- NOTE | 2018-09-06 14:36 | NUR ---
Physical Therapy Impression Focus on Neuro re-education activities including: fast walking, slow walking, tandem walking forward/backward, walking backward, walking with both horizontal and vertical head turns, single leg stance both R and L, tandem stance, feet together with eyes closed, alternating step-ups forward, alternating step-ups diagonally. Pt required CGA/SBA for all activities and minimal UE support during dynamic balance activities. Physical Therapy Goals 1. Independent bed mobility. 2. Independent transfers. 3. Mod I ambulation x 150' with least restrictive device. 4. Ascend/descend 4 stairs SBA. Patient's Goals
--- NOTE | 2018-09-06 15:50 | NUR ---
Occupational Therapy Impression Therapeutic activities focused on left side attention, sensory re-education and left hand strength/coordination. Pt requiring visual compensatory strategies to complete tasks due to paresthesia in left hand. Pt will benefit from continued OT services to address left UE function and short-term memory/executive function. HEP provided, pt motivated to engage (I)ly. Occupational Therapy Goals 1) Pt will be SBA UB/LB dressing. 2) Pt will be educated on visual stratagies for left side neglect. 3) Pt will be educated on left hand AROM/AAROM. Patient's Goal
[2018-09-06 17:06] VITALS: BP 118/74
[2018-09-06 18:43] VITALS: BP 133/78
[2018-09-06] MEDS: SIMVASTATIN 20 MG TAB PO SCH (20:24)
[2018-09-07 05:05] VITALS: BP 135/96
[2018-09-07 09:17] VITALS: BP 132/82
[2018-09-07] MEDS: CLOPIDOGREL BISULFATE 75MG TAB PO SCH (09:25)
[2018-09-07] MEDS: ENOXAPARIN 40 MG/0.4ML SYR SC SCH (09:25)
--- NOTE | 2018-09-07 09:48 | Hospitalist Progress Note ---
Subjective Progress Notes Subjective No acute events overnight. He states he can notice improvements in his motor control and sensation. Patient Complains of: Neurological: Weakness (States he can notice he has some slight left sided weakness and sensation deficits, but that he feels it is improving. ) Cardiovascular: No: Chest Pain, Palpitations Respiratory: No: Congestion, Shortness of Breath Gastrointestinal: No Nausea, No Vomiting Physical Exam Vital Signs Date Time Temp Pulse Resp B/P (MAP) Pulse Ox O2 Delivery O2 Flow Rate FiO2 09/07/18 09:17 98.3 71 18 132/82 (99) 93 Room Air 09/05/18 03:00 1.0 Intake and Output 09/07/18 01:03 Intake Total 1190 ml Balance 1190 ml Intake Oral 1190 ml # Voids 5 General Appearance: Alert, No Acute Distress Neuro: Other (LUE strength 4+/5, LLE Strength 4+/5. Sensation deficits noted to soft touch on L. foot, Unable to Identify correctly which toe was being touched. ) Eyes: PERRLA Cardiovascular: Regular Rate and Rhythm Respiratory: No Respiratory Distress, Clear to Auscultation GI: Soft and Non-Tender Result Diagram: 09/04/18 0329 09/05/18 0510 Monitor Interpretation: Normal Sinus Rhythm Assessment and Plan Problems: (1) CVA (cerebrovascular accident) Status: Acute Assessment & Plan: MRI - Diffusion restriction involving the perisylvian right frontal lobe. CTA with normal vascular imaging, no evidence of hemorrhage. Patient presented outside TPA window. He has been started on Plavix due to patient allergy to ASA. We have resumed simvastatin. Lipid panel was normal (on statin). PT/OT/ST seeing him and recommended acute rehab. ARU in [place] was consulted and denied patient as they felt he was doing well and could do OP therapy rather than inpatient, however ST is evaluating him today (09/07) for cognitive deficits which could impact inpatient vs outpatient needs. Discharge will present some logistical problems as [place] Telemetry dc'd with no abnormal findings. Echocardiogram with bubble study was unremarkable. (2) HTN (hypertension) Status: Chronic Assessment & Plan: Will continue to hold losartan, allow permissive HTN. He has not had any significant elevation of his BP to this point (max SBP 156). Exam Sepsis Risk: No Definite Risk Problem Qualifiers (1) CVA (cerebrovascular accident): CVA mechanism: embolism Precerebral and cerebral artery: middle cerebral artery Laterality of affected vessel: right Qualified Codes: I63.411 - Cerebral infarction due to embolism of right middle cerebral artery RAYMUNDO JAIMES Sep 07, 2018 09:48
--- NOTE | 2018-09-07 10:03 | NUR ---
Physical Therapy Impression Pt agreeable to therapy session with no new complaints today. Emphasis of session on pathfinding with long distance ambulation. Pt tolerated ambulation x1000' with no AD and Freida, with good demonstration of way finding to/from room. Instruction for stair negotiation, pt tolerated asc/desc 2x6 stairs with SBA and R) railing and step over gait. PT instruction for standing balance tasks, narrow JULIO with EO and EC, tandem stance with EO and EC as well as uneven surface with EC, pt with increased postural sway and difficulty with tandem stance and eyes closed, CGA provided. Pt will benefit from further rehab to address higher level dynamic balance tasks. Physical Therapy Goals 1. Independent bed mobility. 2. Independent transfers. 3. Mod I ambulation x 150' with least restrictive device. 4. Ascend/descend 4 stairs SBA. Patient's Goals
[2018-09-07 10:58] VITALS: BP 129/77
[2018-09-07 15:07] VITALS: BP 128/78
--- NOTE | 2018-09-07 16:26 | SLP Assessment ---
INITIAL SPEECH THERAPY EVALUATION REPORT Cognitive Linguistic Follow-up Assessment Patient Name: Toro Rowan Date of Assessment: 09/07/18, Initial assessment 09/04/18 Patient : 1960, 58yo Clinician: Estephanie Dean M.S., CCC-PROPERTY UTILIZATION OFFICER Treatment Dx: BACKGROUND The patient is a 58-year-old male admitted to [facility] on 09/04/18 with L sided weakness and numbness as well as general confusion and cognitive changes. Brain MRI revealed diffusion restriction involving the perisylvian right frontal lobe. Primary Medical Diagnosis: R frontal CVA Past Medical Hx: HTN Pain Scale (0-10): 0 LOC / Participation: pleasant, participatory Prior Level of Function: independent, relocating for new job in [place] Initial ST assessment on 09-04-18 MOCA was administered and pt scored 25/30 with primary areas of deficit including attention and executive function. Pt functioning with moderate cognitive deficit overall. Follow-Up assessment 09-07-18 . The MOCA was administered with pt scoring 24/30. Attention continues to be an area of primary deficit. This was noted throughout the assessment and per nursing/family report such as the patient failing to locate recently placed objects around his hospital room. The patient struggled with delayed recall tasks, failing to recall any of 5 verbally presented words following a 3min delay. Performance on executive function tasks was improved over last MOCA however pt did misplace the hands during the clock drawing task. He later self-corrected given extended completion time. In addition, the patient demonstrates some general confusion and disorientation. He requires use of external aides to recalls current date and place. He continues to demonstrate difficulty with self-monitoring during task completion and tends to complete tasks quickly and then return to look for errors. This is not a consistently successful technique. Flat affect was noted during the assessment which is particularly significant as the patient works as a psychotherapist for a living. The family endorses this change. Safety at home is a concern. The patient and his spouse are in the process of relocating to a new state for work. The patient will be home alone in a new house and city. The patient's cognitive deficits may impact choices regarding his safety in and around the home including driving, safety with mobility, IADLs such as showering and meal preparation. In addition, the lack of a communicative partner in the home for the majority of the day will limit his opportunities to improve cognitive-linguistic skills to PLOF for return to work which is his primary concern. The patient continues to function moderately below baseline and demonstrates little overall change in function since initial assessment. Further ST interventions are warranted and speech therapy recommends acute rehab placement at discharge to support return to independent PLOF including return to work as the family depends on the patient's income. RECOMMENDATIONS 1. ST 4x/wk 2. D/C to acute rehab PROGNOSIS: Good, high PLOF PLAN OF CARE Short Term Goals 1. The patient will identify appropriate goals for daily activity in hospital environment, and generate a logical plan for achievement of goal when provided with min assist for use of organization/planning strategies. 2. The patient will demonstrate functional/work-related attention to task skills that allow him to self monitor and self correct in situ, independently and at 95% accuracy. 3. The patient will demonstrate and identify appropriate affect during work related tasks independently at 95% accuracy. 4. The patient will demonstrate function/work-related delayed recall skills independently and at 95% accuracy. LTG 1. The patient will demonstrate a score on the MOCA of 28 or above (WNL). Thank you for this referral. Please call [phone] to contact with any questions or concerns. Estephanie Dean M.S., CCC-PROPERTY UTILIZATION OFFICER [place]
[2018-09-07 20:04] VITALS: BP 123/79
[2018-09-07] MEDS: SIMVASTATIN 20 MG TAB PO SCH (20:13)
[2018-09-08 03:44] VITALS: BP 136/90
--- NOTE | 2018-09-08 08:58 | Hospitalist Progress Note ---
Subjective Progress Notes Subjective The patient complains of a mild frontal headache today. He states he occasionally gets a headache at home and takes Tylenol for this. Physical Exam Vital Signs Date Time Temp Pulse Resp B/P (MAP) Pulse Ox O2 Delivery O2 Flow Rate FiO2 09/08/18 03:44 57 16 136/90 (105) 92 Room Air 09/07/18 20:04 98.1 09/05/18 03:00 1.0 Intake and Output 09/08/18 07:03 Intake Total 1870 ml Balance 1870 ml Intake Oral 1870 ml # Voids 4 # Bowel Movements 1 General Appearance: Alert, Awake, No Acute Distress Neuro: Other (Very mild difference in strength when testing triceps. Right side is 5/5, left side is 4+/5. Short term memory appears to be a bit improved. [facility] patient did not repeat himself today. ) Result Diagram: 09/04/18 0329 09/05/18 0510 Monitor Interpretation: Normal Sinus Rhythm Assessment and Plan Problems: (1) CVA (cerebrovascular accident) Status: Acute Assessment & Plan: MRI - Diffusion restriction involving the perisylvian right frontal lobe. CTA with normal vascular imaging, no evidence of hemorrhage. Patient presented outside TPA window. He has been started on Plavix due to patient allergy to ASA. We have resumed simvastatin. Lipid panel was normal (on statin). PT/OT/ST seeing him and recommended acute rehab. ARUs in [place] have been sent referrals. Initially the patient was denied at some ARUs as his cognitive deficits were not well documented and his L sided weakness and balance were improving rapidly. Now it is clear that he has significant cognitive deficits as noted by AGRICULTURAL ENGINEERING TECHNICIAN on a second evaluation focusing on the cognitive issues. AGRICULTURAL ENGINEERING TECHNICIAN did a repeat evaluation on Sunday (09/07) and documented cognitive deficits which could impact inpatient vs outpatient needs. Discharge will present some logistical problems as he is in process of moving from [place] to [place]. Telemetry dc'd with no abnormal findings. Echocardiogram with bubble study was unremarkable. (2) HTN (hypertension) Status: Chronic Assessment & Plan: Will continue to hold losartan, allow permissive HTN. He has not had any significant elevation of his BP to this point (max SBP 156). Time Spent on Plan of Care: < 30 min Exam Sepsis Risk: No Definite Risk Problem Qualifiers (1) CVA (cerebrovascular accident): CVA mechanism: embolism Precerebral and cerebral artery: middle cerebral artery Laterality of affected vessel: right Qualified Codes: I63.411 - Cerebral infarction due to embolism of right middle cerebral artery KATHREINE SWAN MD Sep 08, 2018 08:58
[2018-09-08 09:01] VITALS: BP 130/79
[2018-09-08] MEDS: CLOPIDOGREL BISULFATE 75MG TAB PO SCH (09:05)
[2018-09-08] MEDS: ACETAMINOPHEN 500 MG TAB PO PRN ×2 (09:05→22:55)
[2018-09-08] MEDS: ENOXAPARIN 40 MG/0.4ML SYR SC SCH (09:07)
[2018-09-08 16:30] VITALS: BP 131/78
[2018-09-08 20:20] VITALS: BP 147/88
[2018-09-08] MEDS: SIMVASTATIN 20 MG TAB PO SCH (20:34)
[2018-09-09 02:32] VITALS: BP 137/92
[2018-09-09 06:57] VITALS: BP 128/80
[2018-09-09] MEDS: ACETAMINOPHEN 500 MG TAB PO PRN (07:12)
[2018-09-09] MEDS: CLOPIDOGREL BISULFATE 75MG TAB PO SCH (09:24)
[2018-09-09] MEDS: ENOXAPARIN 40 MG/0.4ML SYR SC SCH (09:25)
--- NOTE | 2018-09-09 11:55 | NUR ---
ST IMPRESSION Cognitive-linguistic interventions completed at the bedside, spouse present for portion of tx encounter. Addressed deficits in attention and exec fxn via facilitation of pt participation in goal-oriented planning activity. Pt identified appropriate goals for daily activity in hospital environment, and generated a logical plan for goal execution with min assist. Pt was encouraged to incorporate "self talk" strategy into daily routine, in addition to energy conservation techniques (plan, pace, prioritize) to further support exec fxn deficits. Pt further participated in prospective analysis of perceived challenges upon d/c from acute hospital environment. Pt acknowledges changes in attention span, exec fxn skills, pragmatics, and intermittent, persistent difficulties with temporal orientation. STG1 has been met. New goals (STG 2, 3 & 4) have been established as outlined below. Pt and spouse in agreement with POC. Pt cont to demonstrate steady improvements, though deficits persist in executive functioning, attention, and pragmatics (prosody, affect, etc). 2. The patient will demonstrate functional/work-related attention to task skills that allow him to self monitor and self correct in situation, independently and at 95% accuracy. 3. The patient will demonstrate and identify appropriate affect during work related tasks independently at 95% accuracy. 4. The patient will demonstrate function/work-related delayed recall skills independently and at 95% accuracy.
--- NOTE | 2018-09-09 11:56 | Medical Nutrition Therapy ---
Nutrition Anthropometrics Height (Inches): 70.00 Height (Calculated Centimeters: 177.521766 Weight (Pounds): 229 Weight (Calculated Kilograms): 103.901 BMI: 32.9 Hx Weight Loss: Yes (Intentional Wt loss (Lost ~5lbs in last 6 months)) Rancho Nutrition Score: Adequate Rancho Nutrition Risk Score: 19 Dietary Referral Nutrition Risk Factors: Nutrition Risk Comment: Physical Findings Physical Appearance: Obese BMI 30-39 Skin Appearance Skin Appearance: Edema Edema Location Modifier: Edema Location: Type of Edema: Degree of Edema: Gastrointestinal Symptoms GI Symtoms: Tube Present: Bowel Sounds: Recent Bowel Pattern: Stool Characteristics: Nutritional Diagnosis Nutritional Risk Acuity 3: Fair Appetite, Eat/Chew Problem Nutritional Risk Acuity 4: Good Appetite Past Medical History: HTN, HLD Nutritional Acuity: 3-Mild Adjusted Energy Requirement Re: 2147 (Currie [place] Equation) Protein Requirement: 104 Fluid Requirement: 2147 (1mL/kcal) Diet Type: NPO (Nothing by Mouth) Nutritional Education Nutrition Education Topic: Low Na Diet (and Low Saturated Fat Diet), Other Learning Barriers: Cognitive Learning Readiness: Interested Teaching Methods: Discussion Response to Teaching: Verbalize understanding Teaching Recipient: Patient, Significant Other Nutrition Monitoring & Eval Nutrition Goals: Eat 75-100% Meal Nutrition Follow-Up: Good Intake RD Patient Assessment Time: [address] Assessment Type: RD Re-Assessment Patient Nutrition Acuity: 3-Mild Follow Up Date: Sep 13, 2018 Nutritional Comment: 09/04/18-Spoke with pt and his this am. Pt admit for CVA. Significant PMH includes HTN, HLD. Pt appears well nourished, reports eating 3 meals per day. Usual body weight is ~230 lbs. Pt reports intentional wt loss of ~5lbs over last 6 months. Pt reported some facial numbing. Pt asked when pt could water or food. Spoke with RN and plan is to complete a CIGARETTE LIGHTER REPAIRER evaluation before diet advancement. Communicated plan to and pt. Also provided handout on stroke nutrition therapy focusing on low sodium/cholesterol. Will continue to monitor diet advancement, po intake, and any questions on stroke nutrition education.NIKOLAY 09/09/18: Spoke with pt and this am. Discussed high sodium foods to avoid. Discussed target of 2000 mg sodium per day. Discussed low sodium as <5% of DV on food labels. Discussed avoiding foods high in saturated fat. Will provide another handout for pt prior to discharge .AMANDA SINGH Sep 09, 2018 10:43
--- NOTE | 2018-09-09 12:20 | Hospitalist Progress Note ---
Subjective Progress Notes Subjective He has no complaints this morning. He had no acute events overnight. Patient Complains of: Cardiovascular: No: Chest Pain Respiratory: No: Shortness of Breath Physical Exam Vital Signs Date Time Temp Pulse Resp B/P (MAP) Pulse Ox O2 Delivery O2 Flow Rate FiO2 09/09/18 07:15 93 Room Air 09/09/18 06:57 97.8 51 16 128/80 (96) Intake and Output 09/09/18 01:03 Intake Total 840 ml Balance 840 ml Intake Oral 840 ml # Voids 2 General Appearance: Alert, Awake, No Acute Distress, Afebrile Neuro: Other (Cognitive defects noted per family) Cardiovascular: Regular Rate and Rhythm Respiratory: No Respiratory Distress, Clear to Auscultation GI: Soft and Non-Tender Psych: Alert & Oriented X3, Appropriate Mood & Affect Result Diagram: 09/05/18 0510 Monitor Interpretation: Normal Sinus Rhythm Assessment and Plan Problems: (1) CVA (cerebrovascular accident) Status: Acute Assessment & Plan: MRI - Diffusion restriction involving the perisylvian right frontal lobe. CTA with normal vascular imaging, no evidence of hemorrhage. Patient presented outside TPA window. He has been started on Plavix due to patient allergy to ASA. We have resumed simvastatin. Lipid panel was normal (on statin). PT/OT/ST seeing him and recommended acute rehab. ARUs in [place] have been sent referrals. Initially the patient was denied at some ARUs as his cognitive deficits were not well documented and his L sided weakness and balance were improving rapidly. Now it is clear that he has significant cognitive deficits as noted by MEDIA PRODUCTION SUPPORT MANAGER on a second evaluation focusing on the cognitive issues. MEDIA PRODUCTION SUPPORT MANAGER did a repeat evaluation on Sunday (09/07) and documented cognitive deficits which could impact inpatient vs outpatient needs. Discharge will present some logistical problems as he is in process of moving from [place] to [place]. Telemetry dc'd with no abnormal findings. Echocardiogram with bubble study was unremarkable. (2) HTN (hypertension) Status: Chronic Assessment & Plan: Will continue to hold losartan, allow permissive HTN. He has not had any significant elevation of his BP to this point (max SBP 156). Exam Sepsis Risk: No Definite Risk Problem Qualifiers (1) CVA (cerebrovascular accident): CVA mechanism: embolism Precerebral and cerebral artery: middle cerebral artery Laterality of affected vessel: right Qualified Codes: I63.411 - Cerebral infarction due to embolism of right middle cerebral artery (2) HTN (hypertension): Hypertension type: essential hypertension Qualified Codes: I10 - Essential (primary) hypertension JUDAH FLOOD [facility] Sep 09, 2018 12:20
[2018-09-09 12:36] VITALS: BP 131/88
--- NOTE | 2018-09-09 13:07 | NUR ---
Physical Therapy Impression Pt able to perform bed mobility and transfers from low surfaces independently. Pt ambulated with a mild L ataxic gait pattern without loss of balance independently. Pt able to negotiate tight spaces and weave around furniture without loss of balance. Pt negotiated total of 24 steps with use of rail at Mod I level. No safety concerns at this time with stair negotiation. Pt demonstrates a functional level safe and independent enough to be safely discharged from the hospital. Recommend Pt continue outpatient physical therapy to continue to work on higher-level activities. Physical Therapy Goals 1. Independent bed mobility. 2. Independent transfers. 3. Mod I ambulation x 150' with least restrictive device. 4. Ascend/descend 4 stairs SBA. Patient's Goals
--- NOTE | 2018-09-09 15:05 | NUR ---
Occupational Therapy Impression Therapeutic activities focused on left side attention, sensory re-education and left hand strength/coordination. Pt safe for discharge when medically appropriate. Recommend continued OT services. Occupational Therapy Goals 1) Pt will be SBA UB/LB dressing. 2) Pt will be educated on visual strategies for left side neglect. 3) Pt will be educated on left hand AROM/AAROM. Patient's Goal
[2018-09-09 15:42] VITALS: BP 129/79
--- NOTE | 2018-09-09 15:57 | NUR ---
PHYSICAL THERAPY INFORMATION TRANSFER SHEET BED MOBILITY: Independent TRANSFERS: Independent GAIT: 1000 ' with None and Independent Weightbearing Status: STAIRS: 24 with Modified I/ AE. EXERCISES: Verbalizes Needs: Yes Understands Directions Yes Cooperative: Yes Family Teaching: Yes Physical Therapy Comment:
[2018-09-09 19:23] VITALS: BP 132/83
[2018-09-09] MEDS: SIMVASTATIN 20 MG TAB PO SCH (21:00)
[2018-09-10] MEDS ORDERED: CLOPIDOGREL BISULFATE 75MG TAB PO SCH
[2018-09-10] MEDS ORDERED: SIMVASTATIN 20 MG TAB PO SCH
[2018-09-10 07:47] VITALS: BP 128/80
[2018-09-10] MEDS ORDERED: CLOP75TA PO (09:15)
--- NOTE | 2018-09-10 09:19 | Hospitalist Depart ---
Discharge Summary Reason for Hosp/Final Diag: (1) CVA (cerebrovascular accident) Status: Acute Hospital Course & Plan: MRI - Diffusion restriction involving the perisylvian right frontal lobe. CTA with normal vascular imaging, no evidence of hemorrhage. Patient presented outside TPA window. He was started on Plavix due to patient allergy to ASA. We have resumed simvastatin. Lipid panel was normal (on statin). PT/OT/ST recommend acute rehab. Referrals were sent for ARUs in [place]. Initially the patient was denied at some ARUs as his cognitive deficits were not well documented and his L sided weakness and balance were improving rapidly. Now it is clear that he has significant cognitive deficits as noted by GLUE WHEEL OPERATOR on a second evaluation focusing on the cognitive issues. GLUE WHEEL OPERATOR did a repeat evaluation on Sunday (09/07) and documented cognitive deficits which could impact inpatient vs outpatient needs. Discharge will present some logistical problems as he is in process of moving from [place] to [place]. Telemetry show no abnormal findings. Echocardiogram with bubble study was unremarkable. Patient will discharge to ARU in [place] for continued rehab. (2) HTN (hypertension) Status: Chronic Hospital Course & Plan: Will continue to hold losartan, allow permissive HTN. He has not had any significant elevation of his BP to this point (max SBP 156). Departure Latest Vital Signs Vital Signs 09/05/18 09/10/18 09/10/18 03:00 07:47 08:26 Temp 98.8 Pulse 53 Resp 16 B/P (MAP) 128/80 (96) Pulse Ox 90 O2 Delivery Room Air O2 Flow Rate 1.0 Weight (Pounds): 229 Weight (Ounces): 1.0 Result Diagram: 09/04/18 0329 09/05/18 0510 Condition: Improved Discharge: Rehab Facility PT/OT Follow Up For: PT For Strengthening, OT For ADL's, PT Evaluation and Treat, ST Evaluation and Treat, OT Evaluation and Treat Discharge Instructions Home Meds Active Scripts Clopidogrel Bisulfate (CLOPIDOGREL) 75 Mg Tablet, 75 MG PO QDAY, #30 TAB Prov:JUDAH FLOOD Michael BONDED STRAND OPERATOR 09/10/18 Reported Medications Simvastatin (SIMVASTATIN) 20 Mg Tablet, 20 MG PO HS, TAB 09/04/18 Discontinued Reported Medications Losartan Potassium (LOSARTAN POTASSIUM) 25 Mg Tablet, 25 MG PO QDAY 09/04/18 Diet: Regular Activity: As Tolerated Special Instructions: Start Plavix. Stop Losartan. Continue Simvastatin. Venous Thromboembolism Antithrombotics Is Pt On Any Antithrombotics?: Yes Problem Qualifiers (1) CVA (cerebrovascular accident): CVA mechanism: embolism Precerebral and cerebral artery: middle cerebral art lorenzo Laterality of affected vessel: right Qualified Codes: I63.411 - Cerebral infarction due to embolism of right middle cerebral artery (2) HTN (hypertension): Hypertension type: essential hypertension Qualified Codes: I10 - Essential (primary) hypertension JUDAH FLOOD BONDED STRAND OPERATOR Sep 10, 2018 09:19
[2018-09-10] MEDS ORDERED: SIMVASTATIN 20 MG TAB PO ONE (09:20)
[2018-09-10] MEDS ORDERED: CLOPIDOGREL BISULFATE 75MG TAB PO ONE (09:45)
[2018-09-10] MEDS: ENOXAPARIN 40 MG/0.4ML SYR SC SCH (11:11)
[2018-09-10] MEDS: CLOPIDOGREL BISULFATE 75MG TAB PO SCH (11:11)
== END 2018-09-10 11:24 | DRG 66 ==
LOC: ER 03:53 → MED 07:25
PROVIDERS: ADMIT Internal Medicine; ATTEND Internal Medicine
DX: I63.411 Cerebral infarction due to embolism of right middle cerebral artery (principal); I10 Essential (primary) hypertension; R29.705 NIHSS score 5; Z88.8 Allergy status to other drugs, medicaments and biological substances; E78.5 Hyperlipidemia, unspecified; W06.XXXA Fall from bed, initial encounter; Y99.8 Other external cause status; Y92.59 Other trade areas as the place of occurrence of the external cause
CPT/HCPCS: 36415; 70450; 70496; 70498; 70551; 71045; 82040; 82247; 82310; 82374; 82435; 82465; 82565; 82947; 83718; 84075; 84132; 84155; 84295; 84450; 84460; 84478; 84484; 84520; 85025; 85610; 85730; 92523; 93005; 93306; 97162; 97166; 99285; 99291; 99292; J1650; J7050; Q9967

== ENCOUNTER → 2018-09-04 | Outpatient (CLI) | payer OTHER ==
[~2018-09-04] MED LIST: CLOP75TA PO; LOSA25TA57 PO; SIMV-49 PO
== END ==
LOC: AMB 03:06
PROVIDERS: ATTEND Nurse Practitioner
DX: R53.1 Weakness (principal)
CPT/HCPCS: A0425; A0427